=== PATIENT | female | born 1960 | race Caucasian/White ===

== ENCOUNTER 2024-12-01 14:15 | Emergency (ER) | payer MEDICAID, SELFPAY ==
[2024-12-01 14:45] VITALS: BP 162/102; PULSE 72; RESP 16; TEMP 36.9; O2SAT 98; BMI 20.3
--- NOTE | 2024-12-01 14:58 | XR_ITS ---
Examination:Right hip AP, lateral, AP pelvis 3 views Technique: Hip AP lateral, AP pelvis, 3 views Exam date and time:December 01, 2024 1516 hrs. Indications: Patient fell today with into the right hip, right hip pain. Findings: No right hip fracture or dislocation Advanced right hip osteoarthritis Left hip bones of the pelvis intact Impression: No acute right hip fracture If symptoms persist, recommend 1 day follow-up AP pelvis.
--- NOTE | 2024-12-01 14:58 | PD.EDFALL ---
ED Fall Injury RME/HPI General Chief Complaint: Fall Stated Complaint: Fall left hip pain and left shoulder pain Time Seen by Provider: 12/01/24 14:33 Arrival date/time: 12/01/24 14:15 RME / HPI RME / HPI Narrative: 64-year-old female patient came in for evaluation regarding right hip pain. Patient was feeding her horse, and was supposed to the fence by the horse and fell down. Patient complaining of pain to the right hip, described as dull ache, severity moderate. Been taking tramadol for her rheumatoid arthritis with no relief. Denies any LOC neck pain chest pain back pain or other complaints. Incident happened yesterday. Related Data Allergies Allergy/AdvReac Type Severity Reaction Status Date / Time No Known Allergies Allergy Verified 12/01/24 14:20 Review of Systems Review of Systems Narrative Review of Systems: Review of system reviewed and within normal limits except mentioned in HPI ED Exam Narrative Physical exam: VITAL SIGNS: Reviewed. GENERAL APPEARANCE: Alert and interactive, follows commands, no acute distress, HEAD AND FACE: Non-traumatic. ENT: PERRL, pink conjunctivitis, eyelid no trauma, Mucous membrane moist. NECK: Supple, nontender, no nuchal rigidity. CHEST: No tenderness, no crepitus, no paradoxical movement, no retractions. LUNGS: Clear, well ventilated, symmetric, no rales, no wheezing, no ronchi, no stridor, good breath sounds bilaterally. HEART: Regular rate, regular rhythm, no murmur, no gallops. ABDOMEN: Soft, positive bowel sounds, nondistended, no guarding, nontender, no rebound, no masses, RECTAL: Deferred. GENITAL: Deferred. NEUROLOGICAL: Gross motor function intact sensory function intact, Appropriate for age. MUSCULOSKELETAL: low back nontender, full range of motion. EXTREMITIES: Right hip tenderness, no swelling no deformity, full range of motion. SKIN: Color pink, dry, no rash, no lacerations, no abrasions, no contusions. LYMPHATICS: Deferred. Course Quality Measures none Orders Category Date Time Status XR hip RT w pelvis 2-3V Stat Exams 12/01/24 14:58 Completed Ketorolac Inj [Toradol Inj] Med 12/01/24 14:58 Discontinued 30 mg IM X1 ONE Vital Signs Vital signs: Vital Signs Temperature 98.4 F 12/01/24 14:45 Pulse Rate 72 02/15/25 14:45 Respiratory Rate 16 12/01/24 14:45 Blood Pressure 162/102 H 12/01/24 14:45 Pulse Oximetry (%) 98 12/01/24 14:45 Oxygen Delivery Method Room Air 12/01/24 14:45 Fall MDM Narrative MDM Narrative:: 64-year-old female patient came in for evaluation regarding right hip pain. Patient was feeding her horse, and was supposed to the fence by the horse and fell down. Patient complaining of pain to the right hip, described as dull ache, severity moderate. Been taking tramadol for her rheumatoid arthritis with no relief. Denies any LOC neck pain chest pain back pain or other complaints. Incident happened yesterday. X-ray of the hip came back normal. Results discussed with the patient. Patient appears nontoxic and hemodynamically stable. Patient discharged home and instructed to follow-up with primary care provider in 24 to 48 hours. Instructed to return to the emergency department immediately if worsening of symptoms Patient data External records reviewed:: None Clinical information provided by:: none Social determinants that could affect healthcare access:: none Patient has the following chronic illnesses:: None How is presenting disease/condition affected by chronic disease/condition?: no chronic disease Evaluation data The following diagnostics were reviewed and interpreted by me:: radiology exam(s) Lab and/or radiology exams considered but not ordered:: none Interpretation Summary: X-ray of the hip came back unremarkable. Medications / Prescriptions Medications or Prescriptions considered but not ordered:: None Medication administrations:: Medication Administration History Discontinued Medications Ketorolac Tromethamine (Ketorolac Inj 60 Mg/2 Ml Vial) 30 mg IM X1 ONE Stop: 12/01/24 14:59 Last Admin: 12/01/24 15:04 Dose: 30 mg Documented By: SOLEDAD Toradol IM Consultations Consultation(s) initiated? (list below): No Diagnosis Fall Differential Diagnosis: other (Hip pain, hip contusion hip fracture) Most likely diagnosis given after review of the tests above:: Hip contusion Admission Indicated Admission indicated?: not indicated Admission Request Was there a request for admission?: No Disposition Plan Disposition Plan: Discharge Discharge Attestation Discharge Attestation: The patient and all family members were given an opportunity to ask questions and understood the discharge instructions. Discharge instructions specifically effects, indications for sooner follow up or return to the emergency department, and the expected course of current diagnosis. Patient condition: Stable Discharge Plan Plan Patient Disposition: HOME (Self Care) Disposition Comment: stabgle Prescriptions/Referrals Referrals: Yulisa Reeder PA-C [Primary Care Provider] - In 1 week Problem List Clinical Impression: Contusion of hip Patient/Caregiver Discharge Instructions Discharge Activity: activity as tolerated Education Materials: ED Hip Contusion Additional Instructions: Thank you for the opportunity for serving you today. You are stable for discharged . You are advised to: Follow-up with your PCP in 1 to 2 days Return to ED for worsening of symptoms Increase oral fluids Take [id number] Tylenol or Motrin as needed for pain Print Language: Sammarinese Stand Alone Forms: Sandra Award Info., Patient Portal Info Letter ANGIE/GILSON Supervising Physician YA Supervising Physician: MD Lea
[2024-12-01] MEDS: KETOROLAC INJ 60 MG/2 ML VIAL 30 MG IM (15:04)
[2024-12-01 18:26] VITALS: BP 158/98; PULSE 75; RESP 18; TEMP 36.6; O2SAT 100
== END 2024-12-01 19:33 | disposition home or self-care (01) ==
PROVIDERS: Emergency Provider Emergency Medicine; PCP Physician Assistant Medical
DX: S70.01XA Contusion of right hip, initial encounter (principal); M06.9 Rheumatoid arthritis, unspecified; W19.XXXA Unspecified fall, initial encounter; Y93.K9 Activity, other involving animal care
CPT/HCPCS: 73502; 96372; 99283; J1885

== ENCOUNTER 2025-02-12 10:30 | Outpatient (RCR) | payer MEDICAID, SELFPAY ==
--- NOTE | 2025-01-31 15:18 | PT.OIERPT ---
PT OP Initial Eval Patient Information Outpatient Physical Therapy Treatment Date: 01/31/25 Visit Reasons: Scoliosis Medical Diagnosis: M41.80 Treatment Dx #1: Scoliosis Treatment Dx #2: Abnormal Posture Start of Care: 01/31/25 Date of Onset: 6 months ago Smoking Status Smoking Status: Never smoker Initial Assessment Subjective: Pt is a 64 y/o female reports of chronic back pain worsening ~ 6 months ago. Pt's most recent xray and MRI found 50 deg of levoscoliosis. According to patient she is consider a possible surgical candidate. Pt has difficulty with breathing, walking, standing, chores, balance, self care, and performing recreational activities. Objective: T/S and L/S AROM: all motions are WFL except left side bending and left rotation Hip PROM: all motions are WFL except IR Hip MMTs: grossly 3+/5 Posture Analysis: left shoulder elevation, right trunk sidebend, right pelvis elevation Muscle Length: tight Hs Assessment: Pt demonstrate abnormal posture and spinal mobility deficits consistent with scoliosis. Based on patient's spinal curvature patient has poor prognosis with physical therapy. 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
--- NOTE | 2025-02-12 11:11 | PT.ODAYNRPT ---
PT Outpatient Daily Note OP Daily Note Outpatient Physical Therapy Treatment Date: 02/12/25 Visit Reasons: Scoliosis Subjective: Pt will be trying cortisone shots in the back per pain management doctor. Pt still has pain minimal change in overall pain Objective: Please see flow chart for list of ther ex performed Assessment: tolerate exercises with minimal pain Plan: Continue with PT Length of Time (minutes) of Treatment: 30 Minutes Procedure Charges Therapeutic Exercise 30 minutes: Yes
== END 2025-02-13 23:59 | disposition home or self-care (01) ==
LOC: CPTX 10:30
PROVIDERS: PCP Physician Assistant Medical; Referring Provider Physician Assistant; Visit Provider Physician Assistant
DX: M41.80 Other forms of scoliosis, site unspecified (principal); M54.9 Dorsalgia, unspecified
CPT/HCPCS: 97110; 97162

== ENCOUNTER 2025-03-07 09:00 | Outpatient (RCR) | payer MEDICAID, SELFPAY ==
--- NOTE | 2025-02-19 09:53 | PT.ODAYNRPT ---
PT Outpatient Daily Note OP Daily Note Outpatient Physical Therapy Treatment Date: 02/19/25 Visit Reasons: SCOLIOSIS Subjective: Pt reports back is doing ok. Objective: Please see flow sheet for ther ex list. Assessment: Added bugs exercise, pt tolerated well and able to performed with desired motion. Plan: Continue with poC. Length of Time (minutes) of Treatment: 30 Minutes Procedure Charges Therapeutic Exercise 30 minutes: Yes
--- NOTE | 2025-02-21 09:46 | PT.ODAYNRPT ---
PT Outpatient Daily Note OP Daily Note Outpatient Physical Therapy Treatment Date: 02/21/25 Visit Reasons: SCOLIOSIS Subjective: Pt's back is about the same. Pt continues to have limitation with sitting and standing. Objective: Please see flow chart for list of ther ex performed Assessment: supine heat with with patient toelerating exercises Plan: Continue with PT Length of Time (minutes) of Treatment: 30 Minutes Procedure Charges Therapeutic Exercise 30 minutes: Yes
--- NOTE | 2025-02-26 15:55 | PTNOTE_ITS ---
PT Outpatient Daily Note OP Daily Note Outpatient Physical Therapy Treatment Date: 02/26/25 Visit Reasons: SCOLIOSIS Subjective: Pt c/o LBP, mentioed she drove to [place] today. Objective: Please see flow sheet for ther ex list. Assessment: Pt tolerated interventions with minimal pain. Plan: Continue with POC. Length of Time (minutes) of Treatment: 30 Minutes Procedure Charges Therapeutic Exercise 30 minutes: Yes
--- NOTE | 2025-02-28 08:42 | PT.ODAYNRPT ---
PT Outpatient Daily Note OP Daily Note Outpatient Physical Therapy Treatment Date: 02/28/25 Visit Reasons: SCOLIOSIS Subjective: Pt reports back feel about the same, continues to have pain. Objective: Please see flow sheet for ther ex list. Assessment: Poor progress with symptoms delaying intervention progression in clinic. Plan: Continue with POC. Length of Time (minutes) of Treatment: 30 Minutes Procedure Charges Therapeutic Exercise 30 minutes: Yes
--- NOTE | 2025-03-05 15:10 | PT.ODAYNRPT ---
PT Outpatient Daily Note OP Daily Note Outpatient Physical Therapy Treatment Date: 03/05/25 Visit Reasons: SCOLIOSIS Subjective: Pt rpeorts pain has been worse lately, notices that its getting diffucult to find position of activity that would give her some relief. Objective: Please see flow sheet for ther ex list. Assessment: Pt presents in clinic with increase pain, regressed interventions. Plan: Continue with poC. Length of Time (minutes) of Treatment: 30 Minutes Procedure Charges Therapeutic Exercise 30 minutes: Yes
--- NOTE | 2025-03-07 14:31 | PT.ODS1RPT ---
PT OP Progress/Discharge Note Date of Service: M41.80 Progress Note/DC Note Progress Note/Discharge Note: DC Note Patient Information Visit Reasons: SCOLIOSIS Medical Diagnosis: Scoliosis Treatment Dx #1: Abnormal Posture Service Discharge Date: 03/07/25 Status Subjective: Pt's back is not change much since starting physical therapy. Pt still has pain limitation with ADLs. Pt will like to stop physical therapy and follow up with specialist in [place]. Objective: T/S and L/S AROM: all motions are WFL except left sidbending and left rotation Hip PROM: all motions are WNL Hip MMTs: grossly 3+/5 Posture Analysis: left shoulder elevation, right trunk sidebend, right pelvis elevation Assessment: Pt continues to have spinal mobility deficits with pain leading to difficulty with ADLs. Pt will no longer benefit from physical therapy due to plateau towards goals. Pt was instructed on HEP last session and educated to continue exercises to maintain overall mobility. Pt performed all exercises safely, thank you for your referrals. Plan: D/C home with HEP and follow up with MD Procedure Charges Therapeutic Exercise 30 minutes: Yes
== END 2025-03-16 23:59 | disposition home or self-care (01) ==
LOC: CPTX 09:00
PROVIDERS: PCP Physician Assistant; Referring Provider Physician Assistant; Visit Provider Physician Assistant
DX: M41.80 Other forms of scoliosis, site unspecified (principal)
CPT/HCPCS: 97110

== ENCOUNTER → 2025-03-28 | Outpatient (CLI) | payer MEDICAID, SELFPAY ==
--- NOTE | 2025-03-28 09:15 | XR_ITS ---
Examination: Screening digital mammography, bilateral Computer aided detection 3-D breast Tomosynthesis, bilateral Date and time of exam: March 28, 2025 0912 hours Compared to mammograms dating to March 18, 2009 Indication: Screening Technique: Nonmagnified MLO, CC views of the breasts to been obtained, reconstructed from 3-D Tomosynthesis images. R2 computer aided detection program utilized for evaluation of suspicious masses and/or abnormal calcifications. 3-D Tomosynthesis images obtained. Findings: The breasts are heterogeneously dense, which may obscure small masses Implants appear stable in position 11 mm partially circumscribed nodule upper right breast MLO view Impression: BI-RADS Category 0: Incomplete: Need additional imaging evaluation 11 mm partially circumscribed nodule upper right breast MLO view, 4.5 cm from the nipple, recommend follow-up spot tomographic views upper outer quadrant right breast, right breast sonography to complete the workup
== END | disposition home or self-care (01) ==
LOC: CDIM 09:02
PROVIDERS: Referring Provider Physician Assistant Medical; Visit Provider Physician Assistant Medical
DX: Z12.31 Encounter for screening mammogram for malignant neoplasm of breast (principal); R92.333 Mammographic heterogeneous density, bilateral breasts; N63.10 Unspecified lump in the right breast, unspecified quadrant
CPT/HCPCS: 77063; 77067

== ENCOUNTER → 2025-05-08 | Outpatient (CLI) | payer MEDICAID, SELFPAY ==
--- NOTE | 2025-05-08 09:00 | XR_ITS ---
Examination: Breast ultrasound, unilateral, right complete Date and time of exam: May 08, 2025 0908 hours INDICATIONS: Mammogram March 28, 2025 11 mm circumscribed nodule upper right breast MLO view Technique: Real-time nj scale ultrasonographic imaging performed right breast including all 4 quadrants as well as nipple retroareolar and axillary region. Findings: 12:00 nodule lobular margins 11 x 10 mm 9:00 nodule circumscribed 5 x 6 mm 11:00 nodule circumscribed 3 x 4 mm Retroareolar nodule circumscribed 5 x 5 mm IMPRESSION: BI-RADS Category 3: Probably benign findings. Recommend 1 additional 6 month right breast sonogram follow-up to document stability of solid nodules described above Also posterior chest wall retroareolar implant region solid mass circumscribed borders 8 x 11 x 11 mm, consider breast MRI without contrast to assess for implant rupture
--- NOTE | 2025-05-08 09:30 | XR_ITS ---
Examination: Diagnostic digital mammography, unilateral, right Computer aided detection 3-D breast Tomosynthesis, unilateral Date and time of exam: May 08, 2025 0928 hours INDICATIONS: Mammogram March 28, 2025 11 mm partially circumscribed nodule upper outer right breast on the MLO view 4.5 cm from the nipple Technique: Nonmagnified MLO, CC views of the right breast have been obtained, reconstructed from 3-D Tomosynthesis images. R2 computer aided detection program utilized for evaluation of suspicious masses and/or abnormal calcifications. 3-D Tomosynthesis images obtained. Findings: Scattered areas of fibroglandular density 12:00 nodule 10 mm partially circumscribed Impression: BI-RADS category 3: Probably benign findings Recommend 1 additional 6 month right mammogram follow-up to document stability of nodule described above
== END | disposition home or self-care (01) ==
PROVIDERS: PCP Physician Assistant Medical; Referring Provider Physician Assistant Medical; Visit Provider Physician Assistant Medical
DX: R92.331 Mammographic heterogeneous density, right breast (principal); N63.15 Unspecified lump in the right breast, overlapping quadrants; N63.41 Unspecified lump in right breast, subareolar; N63.11 Unspecified lump in the right breast, upper outer quadrant
CPT/HCPCS: 76641; 77061; 77065; G0279

== ENCOUNTER → 2025-07-24 | Outpatient (CLI) | payer MEDICAID, SELFPAY ==
--- NOTE | 2025-07-24 09:15 | XR_ITS ---
EXAMINATION: MRI breasts bilateral without intravenous contrast Date and time: May 24, 2025, 10:44 a.m. INDICATIONS: Unspecified lump in the right breast, initial encounter breast implant status, saline implants, ultrasound May 08, 2025 posterior chest wall retroareolar implant region solid mass circumscribed 11 x 11 x 8 mm, assess for breast implant rupture TECHNIQUE AND FINDINGS: Bilateral breast MRI images without intravenous contrast Breast implants essentially replaced the breast tissue The implants appear intact No breast chest wall mass or axillary lymphadenopathy IMPRESSION: Negative for implant rupture Recommend repeat breast sonography in 3 months with a radiologist in attendance
== END | disposition home or self-care (01) ==
LOC: SMRI 08:42
PROVIDERS: PCP Physician Assistant Medical; Referring Provider Physician Assistant Medical; Visit Provider Physician Assistant Medical
DX: R92.8 Other abnormal and inconclusive findings on diagnostic imaging of breast (principal); N63.41 Unspecified lump in right breast, subareolar; Z98.82 Breast implant status
CPT/HCPCS: 77047